=== PATIENT | female | born 2000 | race Caucasian/White ===

== ENCOUNTER 2024-06-27 12:00 | Emergency (ER) | payer OTHER, BC ==
[2024-06-27 12:05] VITALS: RESP 18; TEMP 98.2; BMI 24.0
[2024-06-27] MEDS ORDERED: ONDANSETRON 4 MG/2 ML VIAL ONE (12:43)
[2024-06-27] MEDS ORDERED: ACETAMINOPHEN INJECTION 100 ML ONE (12:43)
[2024-06-27] MEDS: SODIUM CHLORIDE 0.9% 500 ML INFUS.BAG IV ONE (13:19)
[2024-06-27] MEDS: ACETAMINOPHEN 1000 MG/100 ML BAG IVPB ONE (13:19)
[2024-06-27] MEDS: ONDANSETRON 4 MG/2 ML VIAL IVPUSH ONE (13:19)
[2024-06-27 13:23] LABS: BASO % 0.4 % (0-2.0); EOS % 0.9 % (0-4.5); HEMATOCRIT 28.8 % (32.4-45.2); HEMOGLOBIN 9.4 GM/dL (10.7-15.3); LYMPH % 11.4 % (8-40); MCH 27.2 pg (25.7-33.7); MCHC 32.6 g/dl (32.0-36.0); MEAN CELL VOLUME 83.4 fl (80-96); MEAN PLT VOLUME 8.4 fl (7.5-11.1); NEUT % 82.3 % (42.8-82.8); PLATELET COUNT 213 10^3/uL (134-434); RBC 3.45 M/mm3 (3.60-5.2); RDW 13.9 % (11.6-15.6); WHITE BLOOD COUNT 10.5 K/mm3 (4.0-10.0)
[2024-06-27 13:44] LABS: POTASSIUM 4.2 mmol/L (3.5-5.1)
[2024-06-27 13:47] LABS: ALBUMIN 2.8 g/dl (3.4-5.0); BLOOD UREA NITROGEN 4.2 mg/dL (7-18)
[2024-06-27 13:50] LABS: CREATININE 0.5 mg/dL (0.55-1.3)
[2024-06-27 13:51] LABS: BILIRUBIN,TOTAL 0.5 mg/dL (0.2-1); TOT PROT 6.2 g/dl (6.4-8.2)
[2024-06-27 15:38] LABS: URINE APPEARANCE CLEAR; URINE BILIRUBIN NEGATIVE (NEGATIVE); URINE COLOR YELLOW; URINE GLUCOSE (UA) NEGATIVE (NEGATIVE); URINE KETONE NEGATIVE (NEGATIVE); URINE LEUK ESTERASE NEGATIVE (NEGATIVE); URINE NITRITE NEGATIVE (NEGATIVE); URINE PROTEIN NEGATIVE (NEGATIVE); URINE UROBILINOGEN 0.2 mg/dL (0.2-1.0)
[2024-06-27 16:31] VITALS: BP 112/59; PULSE 83
== END 2024-06-27 16:34 | disposition home or self-care (01) ==
LOC: JER 12:00
PROC: 3E033NZ Introduction of Analgesics, Hypnotics, Sedatives into Peripheral Vein, Percutaneous Approach (ICD-10-PCS; principal; 2024-06-27)
PROC: 3E033GC Introduction of Other Therapeutic Substance into Peripheral Vein, Percutaneous Approach (ICD-10-PCS; 2024-06-27)
DX: O21.9 Vomiting of pregnancy, unspecified (principal); O26.893 Other specified pregnancy related conditions, third trimester; R51.9 Headache, unspecified; Z3A.36 36 weeks gestation of pregnancy; Z20.822 Contact with and (suspected) exposure to COVID-19
CPT/HCPCS: 0241U-QW; 36415; 76604; 76705-TC; 76815; 80053; 81003; 83735; 85025; 87086; 93308; 99284-25; J0131

== ENCOUNTER 2024-07-11 22:45 | Inpatient (IN) | payer BC, OTHER ==
[2024-07-12] MEDS: DEXTROSE 5%-LACTATED RINGERS 1,000 ML IV SCH (00:15)
[2024-07-12 00:52] LABS: BASO % 0.2 % (0-2.0); EOS % 1.3 % (0-4.5); HEMATOCRIT 31.7 % (32.4-45.2); HEMOGLOBIN 10.3 GM/dL (10.7-15.3); LYMPH % 17.2 % (8-40); MCH 27.3 pg (25.7-33.7); MCHC 32.4 g/dl (32.0-36.0); MEAN CELL VOLUME 84.4 fl (80-96); MEAN PLT VOLUME 8.5 fl (7.5-11.1); MONO % 6.7 % (3.8-10.2); NEUT % 74.6 % (42.8-82.8); PLATELET COUNT 180 10^3/uL (134-434); RBC 3.76 M/mm3 (3.60-5.2); RDW 14.1 % (11.6-15.6); WHITE BLOOD COUNT 10.8 K/mm3 (4.0-10.0)
[2024-07-12 00:53] VITALS: BMI 24.3
[2024-07-12 01:02] LABS: INR 0.88 (0.83-1.09); PROTHROMBIN TIME (PATIENT) 10.2 SEC (9.7-13.0)
[2024-07-12 01:03] LABS: ACTIVATED PTT 25.1 SECONDS (25.2-36.5)
[2024-07-12 01:12] LABS: POTASSIUM 3.8 mmol/L (3.5-5.1)
[2024-07-12 01:13] LABS: CALCIUM 8.6 mg/dL (8.5-10.1)
[2024-07-12 01:15] LABS: BLOOD UREA NITROGEN 6.6 mg/dL (7-18)
[2024-07-12] MEDS ORDERED: BUTORPHANOL TARTRATE 2 MG/ML VIAL ONE (01:16)
[2024-07-12] MEDS ORDERED: PROMETHAZINE HCL 25 MG/1 ML VIAL ONE (01:16)
[2024-07-12 01:17] LABS: CREATININE 0.6 mg/dL (0.55-1.3)
[2024-07-12] MEDS: PROMETHAZINE HCL 25 MG/1 ML VIAL IVPB ONE (01:25)
[2024-07-12] MEDS: BUTORPHANOL TARTRATE 2 MG/ML VIAL IVPB ONE (01:25)
[2024-07-12 02:11] LABS: HIV INTERPRETATION NEGATIVE (NEGATIVE)
[2024-07-12 03:15] LABS: METHADONE, UR NEGATIVE (NEGATIVE); URINE BARBITURATES NEGATIVE (NEGATIVE); URINE BENZODIAZEPINES NEGATIVE (NEGATIVE)
[2024-07-12 03:16] LABS: OPIATES, URI NEGATIVE (NEGATIVE); PHENCYCLIDINE,URINE NEGATIVE (NEGATIVE)
[2024-07-12 03:31] LABS: COCAINE, UR NEGATIVE (NEGATIVE); URINE AMPHETAMINES NEGATIVE (NEGATIVE)
[2024-07-12] MEDS: OXYTOCIN 30 UNITS in 0.9% NS 30 UNIT/500 ML INFUS.BAG IVPB SCH (10:10)
[2024-07-12] MEDS ORDERED: OXYTOCIN 30 UNITS in 0.9% NS 30 UNIT/500 ML INFUS.BAG IVPB ONE (10:12)
[2024-07-12] MEDS ORDERED: CITRIC ACID/SODIUM CITRATE 30 ML UNIT-DOSE CUP PO ONE (10:15)
[2024-07-12] MEDS: ELECTROLYTE-148 SOLN 1,000 ML IV SCH (10:25)
[2024-07-12] MEDS: ELECTROLYTE-148 SOLN 500 ML IV ONE (10:25)
[2024-07-12] MEDS ORDERED: FENTANYL/BUPIVACAINE/NS/PF - PCEA - 50 ML DISP.SYRIN EP ONE ×2 (10:33→15:29)
[2024-07-12] MEDS ORDERED: NALOXONE HCL 0.4 MG/ML VIAL IVPUSH PRN (10:40)
[2024-07-12] MEDS ORDERED: BUPIVACAINE HCL/PF 0.25% (2.5MG/ML) 10 ML VIAL ONE (10:49)
[2024-07-12] MEDS: FENTANYL/BUPIVACAINE/NS/PF - PCEA - 50 ML DISP.SYRIN EP SCH (11:10)
[2024-07-12] MEDS ORDERED: OXYTOCIN 20 UNITS in 0.9% NS 20 UNIT/1,000 ML INFUS.BAG IV ONE (19:03)
[2024-07-12] MEDS ORDERED: LIDOCAINE HCL 1% PRESERVATIVE FREE - 30ML VIAL ONE (19:03)
[2024-07-12] MEDS: OXYTOCIN 20 UNITS in 0.9% NS 20 UNIT/1,000 ML INFUS.BAG IV SCH (19:31)
[2024-07-12] MEDS ORDERED: oxyCODONE HCL 5 MG TABLET PO PRN (20:01)
[2024-07-12] MEDS ORDERED: BISACODYL 10 MG SUPP.RECT RC PRN (20:01)
[2024-07-12] MEDS ORDERED: BENZOCAINE 28 GM HEMORRHOIDAL OINTMENT TP PRN (20:01)
[2024-07-12] MEDS ORDERED: WITCH HAZEL 50% (TUCKS) 40 PAD/JAR PAD TP PRN (20:01)
[2024-07-12 20:34] VITALS: RESP 18
[2024-07-12] MEDS ORDERED: ACETAMINOPHEN 325 MG TABLET (FP) ONE (20:56)
[2024-07-12] MEDS: ACETAMINOPHEN 325 MG TABLET (FP) PO PRN (20:59)
[2024-07-12] MEDS: METHYLERGONOVINE MALEATE 0.2 MG/1 ML AMP IM PRN (21:00)
[2024-07-13 07:30] LABS: BASO % 0.2 % (0-2.0); EOS % 0.2 % (0-4.5); HEMATOCRIT 27.8 % (32.4-45.2); HEMOGLOBIN 8.8 GM/dL (10.7-15.3); LYMPH % 11.3 % (8-40); MCHC 31.9 g/dl (32.0-36.0); MEAN CELL VOLUME 84.8 fl (80-96); MEAN PLT VOLUME 8.6 fl (7.5-11.1); MONO % 8.9 % (3.8-10.2); NEUT % 79.4 % (42.8-82.8); PLATELET COUNT 140 10^3/uL (134-434); RBC 3.27 M/mm3 (3.60-5.2); RDW 14.2 % (11.6-15.6); WHITE BLOOD COUNT 16.1 K/mm3 (4.0-10.0)
[2024-07-13] MEDS: IBUPROFEN 600 MG TABLET (FP) PO PRN (09:20)
[2024-07-13] MEDS: PRENATAL VITAMINS W/ FOLIC ACID TABLET (FP) PO SCH (09:21)
[2024-07-13] MEDS: FERROUS SO4 325 MG TABLET (FP) PO SCH (09:21)
[2024-07-13] MEDS: BENZOCAINE 20% 57 GM BOTTLE TP PRN (09:21)
[2024-07-13] MEDS: SENNOSIDES/DOCUSATE COMBO (SENNA PLUS) TABLET (UD) PO PRN (21:19)
[2024-07-14 10:44] VITALS: BP 102/69; PULSE 90; TEMP 98.2
== END 2024-07-14 13:10 | disposition home or self-care (01) | DRG 807 ==
LOC: JDEL 22:45 → JLDR 23:40 → J3W 07-12 22:41
PROVIDERS: ADMIT Obstetrics & Gynecology; ATTEND Obstetrics & Gynecology
PROC: 10E0XZZ Delivery of Products of Conception, External Approach (ICD-10-PCS; principal; 2024-07-12)
PROC: 0HQ9XZZ Repair Perineum Skin, External Approach (ICD-10-PCS; 2024-07-12)
DX: O70.0 First degree perineal laceration during delivery (principal); Z37.0 Single live birth; Z3A.38 38 weeks gestation of pregnancy
CPT/HCPCS: 36415; 59409; 80048; 80307; 85025; 85610; 85730; 86780; 86850; 86900; 86901; 87389